=== PATIENT | male | born 1940 | race Caucasian/White ===

== ENCOUNTER 2020-10-14 08:26 | Observation (INO) ==
[2020-10-14] MEDS ORDERED: Ondansetron 4 MG/2 ML VIAL IVP ONE (08:34)
[2020-10-14] MEDS ORDERED: diazePAM 10 MG/2 ML SYRINGE IVP ONE (08:34)
[2020-10-14] MEDS ORDERED: 0.9 % Sodium Chloride 1,000 ML IVC ONE (08:34)
[2020-10-14 09:03] LABS: Basophils % 0.7 %; Eosinophils # 0.4 K/mcL (0.0-0.6); Eosinophils % 6.4 %; Hematocrit 41.4 % (37.5-50.1); Hemoglobin 13.1 g/dL (12.9-16.9); Immature Granulocytes % 0.5 % (0-4); Lymphocytes # 1.3 K/mcL (0.6-4.6); Mean Corpuscular HGB Conc 31.6 g/dL (31.6-35.5); Mean Corpuscular Hemoglobin 30.3 pg (28.0-33.3); Mean Corpuscular Volume 95.6 fL (83.0-100.0); Mean Platelet Volume 9.5 fL (9.4-12.4); Monocytes # 0.6 K/mcL (0.0-1.3); Monocytes % 9.6 %; Neutrophils # 3.8 K/mcL (1.6-8.9); Platelet Count 262 K/mcL (140-400); Red Blood Count 4.33 M/mcL (4.19-5.50); Red Cell Distribution Width 14.5 % (11.5-14.5); Segmented Neutrophils % 61.8 %; White Blood Count 6.1 K/mcL (4.3-11.1)
[2020-10-14 09:07] LABS: INR 1.1; Prothrombin Time 12.7 Seconds (9.4-12.1)
[2020-10-14 09:21] LABS: Alanine Aminotransferase 15 Units/L (7-52); Albumin 3.9 g/dL (3.5-5.7); Albumin/Globulin Ratio 1.3 (1.1-2.2); Alkaline Phosphatase 26 Units/L (34-104); Aspartate Amino Transferase 24 Units/L (13-39); BUN/Creatinine Ratio 19 (6-26); Bilirubin,Total 0.4 mg/dL (0.3-1.0); Blood Urea Nitrogen 35 mg/dL (8-23); Calcium 8.8 mg/dL (8.6-10.3); Carbon Dioxide 21 mEq/L (23-29); Chloride 106 mEq/L (98-107); Globulin 3.1 g/dL (2.4-3.5); Glucose 170 mg/dL (70-105); Magnesium 2.1 mg/dL (1.6-2.6); Osmolality,Calculated 292 (280-300); Potassium 4.1 mEq/L (3.5-5.1); Sodium 135 mEq/L (136-145); Troponin I < 0.03 ng/mL (< 0.04); eGFR For African Americans 42 (> 60); eGFR For Non-African Americans 35 (> 60)
[2020-10-14 09:40] LABS: Adenovirus Not Detected (Not Detect); Coronavirus 229E Not Detected (Not Detect)
[2020-10-14 09:41] LABS: Bordetella Pertussis Not Detected (Not Detect); Chlamydophila pneumoniae Not Detected (Not Detect); Coronavirus HKU1 Not Detected (Not Detect); Coronavirus NL63 Not Detected (Not Detect); Coronavirus OC43 Not Detected (Not Detect); Human Metapneumovirus Not Detected (Not Detect); Human Rhinovirus/Enterovirus Not Detected (Not Detect); Influenza A Subtype 2009 H1 Not Detected (Not Detect); Influenza B Not Detected (Not Detect); Mycoplasma pneumoniae Not Detected (Not Detect); Parainfluenza Virus 1 Not Detected (Not Detect); Parainfluenza Virus 2 Not Detected (Not Detect); Parainfluenza Virus 3 Not Detected (Not Detect); Parainfluenza Virus 4 Not Detected (Not Detect); Respiratory Syncytial Virus Not Detected (Not Detect); SARS-CoV-2 Not Detected (Not Detect)
[2020-10-14] MEDS ORDERED: Naloxone 0.4 MG/ML INJ IVP PRN (10:15)
[2020-10-14] MEDS ORDERED: Ondansetron 4 MG/2 ML VIAL IVP PRN (10:15)
[2020-10-14] MEDS ORDERED: *HR* Dextrose 50 % in Water (Vial) 50 ML VIAL IVP PRN (10:17)
[2020-10-14] MEDS ORDERED: D5% in Water 1,000 ML IVC PRN (10:17)
[2020-10-14] MEDS ORDERED: Dextrose Gel 15 GM/37.5 ML TUBE PO PRN ×2 (10:17)
[2020-10-14] MEDS ORDERED: *HR* LORazepam 2 MG/ML VIAL IVP ONE ×2 (10:44→13:00)
[2020-10-14] MEDS ORDERED: Perflutren Lipid Microsphere 1.3 ML in 0.9 % Sodium Chloride 8.7 ML IVP PRN (15:23)
[2020-10-14] MEDS: Insulin LISPRO 300 UNITS/3 ML VIAL SUBQ SCH (17:52)
[2020-10-14] MEDS ORDERED: Insulin LISPRO 300 UNITS/3 ML VIAL SUBQ SCH (21:00)
[2020-10-15 05:02] LABS: Calcium 8.7 mg/dL (8.6-10.3)
[2020-10-15 07:20] VITALS: BP 166/79
[2020-10-15] MEDS: Insulin LISPRO 300 UNITS/3 ML VIAL SUBQ SCH (07:22)
== END 2020-10-15 11:12 | disposition home or self-care (01) ==
LOC: 3BNU 08:26 → EMEROOARM 08:26 → 3BNU 11:04
PROVIDERS: ADMIT Student in an Organized Health Care Education/Training Program; ATTEND Student in an Organized Health Care Education/Training Program

== ENCOUNTER 2021-10-23 01:28 | Inpatient (IN) ==
[2021-10-23 02:58] LABS: Basophils % 0.5 %; Eosinophils # 0.5 K/mcL (0.0-0.6); Eosinophils % 7.5 %; Hemoglobin 12.1 g/dL (12.9-16.9); Immature Granulocytes % 0.3 % (0-4); Lymphocytes # 1.5 K/mcL (0.6-4.6); Lymphocytes % 22.1 %; Mean Corpuscular HGB Conc 31.8 g/dL (31.6-35.5); Mean Corpuscular Hemoglobin 30.9 pg (28.0-33.3); Mean Corpuscular Volume 96.9 fL (83.0-100.0); Monocytes # 0.9 K/mcL (0.0-1.3); Monocytes % 13.5 %; Neutrophils # 3.7 K/mcL (1.6-8.9); Platelet Count 217 K/mcL (140-400); Red Blood Count 3.92 M/mcL (4.19-5.50); Red Cell Distribution Width 14.3 % (11.5-14.5); Segmented Neutrophils % 56.1 %; White Blood Count 6.6 K/mcL (4.3-11.1)
[2021-10-23 03:07] LABS: Calcium 9.4 mg/dL (8.6-10.3); Potassium 4.2 mEq/L (3.5-5.1)
[2021-10-23 03:08] LABS: Troponin I 0.03 ng/mL (< 0.04)
[2021-10-23] MEDS ORDERED: Nitroglycerin 0.4 MG TAB.SUBL SL PRN (04:03)
[2021-10-23] MEDS ORDERED: 0.9 % Sodium Chloride 500 ML IV ONE (04:43)
[2021-10-23] MEDS ORDERED: *HR* Heparin 5,000 UNIT/ML VIAL IVP ONE (05:16)
[2021-10-23] MEDS ORDERED: *HR* Heparin 5,000 UNIT/ML VIAL IVP PRN (05:16)
[2021-10-23] MEDS ORDERED: Ondansetron 4 MG/2 ML VIAL IVP PRN (05:41)
[2021-10-23] MEDS ORDERED: Melatonin 3 MG TABLET PO PRN (05:41)
[2021-10-23] MEDS ORDERED: Naloxone 0.4 MG/ML INJ IVP PRN (05:41)
[2021-10-23] MEDS ORDERED: Morphine Sulfate 2 MG/ML SYRINGE IVP PRN (06:00)
[2021-10-23] MEDS ORDERED: Acetaminophen 325 MG TABLET PO PRN (06:00)
[2021-10-23] MEDS ORDERED: *HR* Dextrose 50 % in Water (Syg) 50 ML SYRINGE IVP PRN (06:19)
[2021-10-23] MEDS ORDERED: D5% in Water 1,000 ML IVC PRN (06:19)
[2021-10-23] MEDS ORDERED: Dextrose Gel 15 GM/37.5 ML TUBE PO PRN ×2 (06:19)
[2021-10-23 08:37] LABS: Heparin anti-factor XA UFH < 0.04 IU/mL (0.30-0.70); Prothrombin Time 11.5 Seconds (9.4-12.1)
[2021-10-23 08:39] LABS: Chol/HDL Ratio 4.3 (0-4.9); Magnesium 1.6 mg/dL (1.6-2.6)
[2021-10-23] MEDS: Heparin 25,000UNIT/250ML 1/2NS 25,000 UNIT/250 ML IV.SOLN IVC SCH (09:01)
[2021-10-23 09:32] LABS: Hepatitis B Surface Antigen Nonreactive (Nonreactive)
[2021-10-23] MEDS ORDERED: *HR* Metoprolol 5 MG/5 ML VIAL IVP PRN (09:34)
[2021-10-23] MEDS ORDERED: Losartan/HCTZ 50-12.5 TABLET PO SCH (09:45)
[2021-10-23] MEDS ORDERED: Furosemide 40 MG TABLET PO SCH (09:45)
[2021-10-23 09:47] LABS: Hematocrit 38.4 % (37.5-50.1); Hemoglobin 12.3 g/dL (12.9-16.9); Mean Corpuscular Hemoglobin 31.3 pg (28.0-33.3); Mean Corpuscular Volume 97.7 fL (83.0-100.0); Mean Platelet Volume 10.8 fL (9.4-12.4); Platelet Count 204 K/mcL (140-400); Red Blood Count 3.93 M/mcL (4.19-5.50); Red Cell Distribution Width 14.2 % (11.5-14.5); White Blood Count 6.1 K/mcL (4.3-11.1)
[2021-10-23 09:56] LABS: Estimated Average Glucose 169 mg/dl; Hemoglobin A1C 7.5 %
[2021-10-23 10:01] LABS: Hepatitis B Core IgM Nonreactive (Nonreactive); Hepatitis C Virus Antibody Nonreactive (Nonreactive)
[2021-10-23] MEDS ORDERED: Nitroglycerin 1,000 MCG/5 ML VIAL IV ONE (10:48)
[2021-10-23] MEDS ORDERED: 0.9 % Sodium Chloride 2,000 ML ONE (10:48)
[2021-10-23] MEDS ORDERED: ISOVUE-370 200 ML INFUS..BTL ONE (10:48)
[2021-10-23] MEDS ORDERED: Heparin 1,000 UNITS/500 mL 500 ML ONE (10:48)
[2021-10-23] MEDS ORDERED: *HR* Heparin 10,000 UNIT/10 ML VIAL ONE (10:48)
[2021-10-23] MEDS ORDERED: *HR* FentaNYL (PF) 100 MCG/2 ML VIAL ONE (10:58)
[2021-10-23] MEDS ORDERED: *HR* Midazolam HCl 2 MG/2 ML VIAL ONE (10:58)
[2021-10-23] MEDS: 0.9 % Sodium Chloride 500 ML IVC SCH ×2 (14:04→23:44)
[2021-10-23] MEDS: Insulin LISPRO 300 UNITS/3 ML VIAL SUBQ SCH ×2 (14:09→18:13)
[2021-10-23 20:16] LABS: Hepatitis A Antibody IgM Nonreactive (Nonreactive)
[2021-10-23] MEDS: *HR* Heparin 5,000 UNIT/ML VIAL IVP PRN (23:43)
[2021-10-24] MEDS: Insulin LISPRO 300 UNITS/3 ML VIAL SUBQ SCH ×4 (01:07→17:55)
[2021-10-24 06:09] LABS: Hematocrit 38.7 % (37.5-50.1); Hemoglobin 12.8 g/dL (12.9-16.9); Mean Corpuscular HGB Conc 33.1 g/dL (31.6-35.5); Mean Corpuscular Hemoglobin 31.8 pg (28.0-33.3); Mean Corpuscular Volume 96.3 fL (83.0-100.0); Mean Platelet Volume 10.5 fL (9.4-12.4); Platelet Count 209 K/mcL (140-400); Red Blood Count 4.02 M/mcL (4.19-5.50); Red Cell Distribution Width 14.3 % (11.5-14.5)
[2021-10-24 06:31] LABS: Calcium 9.2 mg/dL (8.6-10.3); Potassium 3.8 mEq/L (3.5-5.1)
[2021-10-24] MEDS: Aspirin 81 MG TAB.CHEW PO SCH (08:47)
[2021-10-24] MEDS: 0.9 % Sodium Chloride 500 ML IVC SCH ×2 (08:48→17:56)
[2021-10-24] MEDS: Isosorbide MONOnitrate (24 HR) 30 MG TAB.ER.24H PO SCH (09:05)
[2021-10-24] MEDS: Heparin 25,000UNIT/250ML 1/2NS 25,000 UNIT/250 ML IV.SOLN IVC SCH (11:04)
[2021-10-24] MEDS ORDERED: Ergocalciferol (VIT D2) 50,000 UNIT (1.25MG) CAP PO SCH (12:45)
[2021-10-25] MEDS: Insulin LISPRO 300 UNITS/3 ML VIAL SUBQ SCH ×4 (00:54→17:13)
[2021-10-25 02:11] LABS: Hematocrit 34.4 % (37.5-50.1); Mean Corpuscular HGB Conc 31.7 g/dL (31.6-35.5); Mean Corpuscular Volume 97.7 fL (83.0-100.0); Mean Platelet Volume 10.7 fL (9.4-12.4); Platelet Count 174 K/mcL (140-400); Red Blood Count 3.52 M/mcL (4.19-5.50); Red Cell Distribution Width 14.3 % (11.5-14.5); White Blood Count 7.2 K/mcL (4.3-11.1)
[2021-10-25 02:18] LABS: Hemoglobin 10.9 g/dL (12.9-16.9)
[2021-10-25 02:30] LABS: Calcium 8.8 mg/dL (8.6-10.3); Potassium 3.9 mEq/L (3.5-5.1)
[2021-10-25] MEDS: Aspirin 81 MG TAB.CHEW PO SCH (08:17)
[2021-10-25] MEDS: Fenofibrate 54 MG TABLET PO SCH (08:17)
[2021-10-25] MEDS: Isosorbide MONOnitrate (24 HR) 30 MG TAB.ER.24H PO SCH (08:17)
[2021-10-25] MEDS: 0.9 % Sodium Chloride 500 ML IVC SCH ×2 (08:30→13:08)
[2021-10-25] MEDS: Heparin 25,000UNIT/250ML 1/2NS 25,000 UNIT/250 ML IV.SOLN IVC SCH (08:30)
[2021-10-25] MEDS: *HR* Heparin 5,000 UNIT/ML VIAL IVP PRN (18:59)
[2021-10-26] MEDS: Insulin LISPRO 300 UNITS/3 ML VIAL SUBQ SCH ×4 (00:36→18:04)
[2021-10-26 02:02] LABS: Calcium 8.5 mg/dL (8.6-10.3); Potassium 3.8 mEq/L (3.5-5.1)
[2021-10-26] MEDS: Heparin 25,000UNIT/250ML 1/2NS 25,000 UNIT/250 ML IV.SOLN IVC SCH ×2 (03:57→21:52)
[2021-10-26] MEDS: 0.9 % Sodium Chloride 500 ML IVC SCH ×2 (06:07→12:03)
[2021-10-26] MEDS: Aspirin 81 MG TAB.CHEW PO SCH (07:52)
[2021-10-26] MEDS: Fenofibrate 54 MG TABLET PO SCH (07:52)
[2021-10-26] MEDS: Isosorbide MONOnitrate (24 HR) 30 MG TAB.ER.24H PO SCH (07:53)
[2021-10-26] MEDS: Furosemide 40 MG TABLET PO SCH (10:24)
[2021-10-26] MEDS: hydroCHLOROthiazide 25 MG TABLET PO SCH (10:24)
[2021-10-26] MEDS: Chlorhexidine Rinse 15 ML MOUTHWASH MM SCH (22:00)
[2021-10-26 23:44] LABS: Lambda Qnt Free Light Chains 30.75 mg/L (5.71-26.30)
[2021-10-27] MEDS: Insulin LISPRO 300 UNITS/3 ML VIAL SUBQ SCH ×4 (00:09→16:49)
[2021-10-27] MEDS: 0.9 % Sodium Chloride 500 ML IVC SCH ×3 (02:20→23:06)
[2021-10-27] MEDS: Chlorhexidine Rinse 15 ML MOUTHWASH MM SCH ×2 (05:35→21:08)
[2021-10-27 07:02] LABS: Influenza A PCR Negative (Negative); Influenza B PCR Negative (Negative); Resp. Syncytial Virus PCR Negative (Negative)
[2021-10-27] MEDS ORDERED: Nitroglycerin 0 MG/0 ML INFUS..BTL IVC ONE (07:06)
[2021-10-27] MEDS ORDERED: *HR* Vasopressin 20 UNIT/ML VIAL ONE (07:07)
[2021-10-27] MEDS ORDERED: *HR* FentaNYL (PF) 1,000 MCG/20 ML VIAL ONE (07:08)
[2021-10-27] MEDS ORDERED: *HR* Rocuronium Bromide 50 MG/5 ML VIAL ONE (07:09)
[2021-10-27] MEDS ORDERED: *HR* Propofol 200 MG/20 ML VIAL IVP ONE (07:09)
[2021-10-27] MEDS ORDERED: *HR* Midazolam HCl 5 MG/5 ML VIAL IVP ONE (07:09)
[2021-10-27] MEDS ORDERED: Tranexamic Acid 1,000 MG/10 ML VIAL ONE ×2 (07:10→07:57)
[2021-10-27] MEDS ORDERED: *HR* Magnesium Sulfate 1 GM/2 ML VIAL ONE (07:10)
[2021-10-27] MEDS ORDERED: Famotidine 20 MG/2 ML VIAL ONE (07:10)
[2021-10-27] MEDS ORDERED: Lidocaine 2% Syringe 100 MG/5 ML ONE ×2 (07:10→07:57)
[2021-10-27 07:21] LABS: SARS-CoV-2 by PCR (In House) Positive (Negative)
[2021-10-27] MEDS ORDERED: Norepinephrine 4 MG in 0.9 % Sodium Chloride 250 ML IVC PRN (07:45)
[2021-10-27] MEDS ORDERED: Cardioplegic Solution w/ Potassium 20 MEQ TH ONE (07:45)
[2021-10-27] MEDS ORDERED: Cardioplegic Solution w/ Potassium 5 MEQ TH ONE ×3 (07:45)
[2021-10-27] MEDS ORDERED: Heparin 15,000 UNIT in 0.9 % Sodium Chloride 500 ML IV ONE (07:45)
[2021-10-27 09:46] LABS: Kappa Qnt Free Light Chains 48.48 mg/L (3.30-19.40)
[2021-10-27] MEDS: hydroCHLOROthiazide 25 MG TABLET PO SCH (10:07)
[2021-10-27] MEDS: Furosemide 40 MG TABLET PO SCH (10:07)
[2021-10-27] MEDS: Fenofibrate 54 MG TABLET PO SCH (10:07)
[2021-10-27] MEDS: Isosorbide MONOnitrate (24 HR) 30 MG TAB.ER.24H PO SCH (10:07)
[2021-10-27] MEDS: Aspirin 81 MG TAB.CHEW PO SCH (10:08)
[2021-10-27] MEDS: Heparin 25,000UNIT/250ML 1/2NS 25,000 UNIT/250 ML IV.SOLN IVC SCH (16:47)
[2021-10-28] MEDS: Insulin LISPRO 300 UNITS/3 ML VIAL SUBQ SCH ×4 (00:14→17:22)
[2021-10-28 02:19] LABS: Calcium 8.7 mg/dL (8.6-10.3); Potassium 3.9 mEq/L (3.5-5.1)
[2021-10-28] MEDS: Fenofibrate 54 MG TABLET PO SCH (08:10)
[2021-10-28] MEDS: Aspirin 81 MG TAB.CHEW PO SCH (08:10)
[2021-10-28] MEDS: Furosemide 40 MG TABLET PO SCH (08:10)
[2021-10-28] MEDS: hydroCHLOROthiazide 25 MG TABLET PO SCH (08:10)
[2021-10-28] MEDS: Isosorbide MONOnitrate (24 HR) 30 MG TAB.ER.24H PO SCH (08:10)
[2021-10-28] MEDS: Chlorhexidine Rinse 15 ML MOUTHWASH MM SCH ×2 (08:11→20:42)
[2021-10-28] MEDS: Heparin 25,000UNIT/250ML 1/2NS 25,000 UNIT/250 ML IV.SOLN IVC SCH (09:00)
[2021-10-28] MEDS: 0.9 % Sodium Chloride 500 ML IVC SCH ×3 (12:16→20:44)
[2021-10-29] MEDS: Insulin LISPRO 300 UNITS/3 ML VIAL SUBQ SCH ×4 (02:41→17:25)
[2021-10-29 03:04] LABS: Alpha 2 Globulin (PEP) 1.02 g/dL (0.48-1.05); Beta Globulin (PEP) 0.89 g/dL (0.48-1.10)
[2021-10-29 09:23] LABS: Calcium 9.5 mg/dL (8.6-10.3); Potassium 3.9 mEq/L (3.5-5.1)
[2021-10-29] MEDS: Aspirin 81 MG TAB.CHEW PO SCH (10:57)
[2021-10-29] MEDS: Furosemide 40 MG TABLET PO SCH (10:57)
[2021-10-29] MEDS: Chlorhexidine Rinse 15 ML MOUTHWASH MM SCH ×2 (10:58→20:29)
[2021-10-29] MEDS: Isosorbide MONOnitrate (24 HR) 30 MG TAB.ER.24H PO SCH (10:58)
[2021-10-29] MEDS: hydroCHLOROthiazide 25 MG TABLET PO SCH (10:58)
[2021-10-29] MEDS: Fenofibrate 54 MG TABLET PO SCH (10:58)
[2021-10-29] MEDS: *HR* Heparin 5,000 UNIT/ML VIAL IVP PRN (12:42)
[2021-10-29 13:19] LABS: IFE Reflexed IFE Done
[2021-10-29 13:20] LABS: Immunoglobulin A 315 mg/dL (68-408); Immunoglobulin G 1257 mg/dL (768-1632); Immunoglobulin M 45 mg/dL (35-263)
[2021-10-29] MEDS: Heparin 25,000UNIT/250ML 1/2NS 25,000 UNIT/250 ML IV.SOLN IVC SCH (13:45)
[2021-10-29] MEDS: 0.9 % Sodium Chloride 500 ML IVC SCH ×2 (17:54→18:26)
[2021-10-30] MEDS: Insulin LISPRO 300 UNITS/3 ML VIAL SUBQ SCH ×2 (02:05→04:46)
[2021-10-30 03:26] VITALS: PULSE 72
[2021-10-30] MEDS: 0.9 % Sodium Chloride 500 ML IVC SCH (04:47)
[2021-10-30 07:51] VITALS: BP 164/77; TEMP 97.6; O2SAT 96
[2021-10-30] MEDS: hydroCHLOROthiazide 25 MG TABLET PO SCH (08:31)
[2021-10-30] MEDS: Chlorhexidine Rinse 15 ML MOUTHWASH MM SCH (08:34)
[2021-10-30] MEDS: Fenofibrate 54 MG TABLET PO SCH (08:34)
[2021-10-30] MEDS: Isosorbide MONOnitrate (24 HR) 30 MG TAB.ER.24H PO SCH (08:35)
[2021-10-30] MEDS: Furosemide 40 MG TABLET PO SCH (08:35)
[2021-10-30] MEDS: Aspirin 81 MG TAB.CHEW PO SCH (08:35)
[2021-10-30] MEDS ORDERED: D5% in Water 1,000 ML IVC PRN (09:03)
[2021-10-30] MEDS ORDERED: *HR* Metoprolol 5 MG/5 ML VIAL IVP PRN (09:03)
[2021-10-30] MEDS ORDERED: Acetaminophen 325 MG TABLET PO PRN (09:03)
[2021-10-30] MEDS ORDERED: 0.9 % Sodium Chloride 500 ML IVC SCH (09:03)
[2021-10-30] MEDS ORDERED: Dextrose Gel 15 GM/37.5 ML TUBE PO PRN ×2 (09:03)
[2021-10-30] MEDS ORDERED: Morphine Sulfate 2 MG/ML SYRINGE IVP PRN (09:03)
[2021-10-30] MEDS ORDERED: CeFAZolin Syr 2,000MG/20 ML 2,000 MG/20 ML SYRINGE IVPB ONE (09:03)
[2021-10-30] MEDS ORDERED: Ondansetron 4 MG/2 ML VIAL IVP PRN (09:03)
[2021-10-30] MEDS ORDERED: Nitroglycerin 0.4 MG TAB.SUBL SL PRN (09:03)
[2021-10-30] MEDS ORDERED: Chlorhexidine Rinse 15 ML MOUTHWASH MM SCH (09:03)
[2021-10-30] MEDS ORDERED: Naloxone 0.4 MG/ML INJ IVP PRN (09:03)
[2021-10-30] MEDS ORDERED: *HR* Dextrose 50 % in Water (Syg) 50 ML SYRINGE IVP PRN (09:03)
[2021-10-30] MEDS ORDERED: Melatonin 3 MG TABLET PO PRN (09:03)
[2021-10-30 10:59] LABS: Estimated Average Glucose 174 mg/dl; Hemoglobin A1C 7.7 %
[2021-10-30] MEDS ORDERED: Insulin LISPRO 300 UNITS/3 ML VIAL SUBQ SCH (12:00)
[2021-10-31] MEDS ORDERED: Isosorbide MONOnitrate (24 HR) 30 MG TAB.ER.24H PO SCH (09:00)
[2021-10-31] MEDS ORDERED: Fenofibrate 54 MG TABLET PO SCH (09:00)
[2021-10-31] MEDS ORDERED: Aspirin 81 MG TAB.CHEW PO SCH (09:00)
[2021-11-01] MEDS ORDERED: Ergocalciferol (VIT D2) 50,000 UNIT (1.25MG) CAP PO SCH (09:00)
== END 2021-10-30 12:09 | disposition home or self-care (01) | DRG 280 ==
LOC: EMEROOARM 01:28 → 3BNU 01:28 → SUATTDRO 10-24 13:22 → 3BNU 10-27 09:39
PROVIDERS: ADMIT Student in an Organized Health Care Education/Training Program; ATTEND Hospitalist

== ENCOUNTER 2021-11-29 06:06 | Inpatient (IN) ==
[~2021-11-29 06:06] MED LIST: Cardioplegic Solution w/ Potassium 20 MEQ TH ONE; Cardioplegic Solution w/ Potassium 5 MEQ TH ONE; Heparin 15,000 UNIT in 0.9 % Sodium Chloride 500 ML IV ONE; Norepinephrine 4 MG in 0.9 % Sodium Chloride 250 ML IVC PRN
[2021-11-29] MEDS ORDERED: *HR* Midazolam HCl 5 MG/5 ML VIAL IVP ONE ×2 (06:19→06:21)
[2021-11-29] MEDS ORDERED: *HR* FentaNYL (PF) 1,000 MCG/20 ML VIAL ONE (06:19)
[2021-11-29] MEDS ORDERED: *HR* Rocuronium Bromide 50 MG/5 ML VIAL ONE (06:21)
[2021-11-29] MEDS ORDERED: *HR* Etomidate 20 MG/10 ML AMPUL IVP ONE (06:22)
[2021-11-29] MEDS ORDERED: Tranexamic Acid 1,000 MG/10 ML VIAL ONE ×2 (06:22→11:31)
[2021-11-29] MEDS ORDERED: Famotidine 20 MG/2 ML VIAL ONE (06:22)
[2021-11-29] MEDS ORDERED: Protamine Sulfate 250 MG/25 ML VIAL IVP ONE (06:25)
[2021-11-29] MEDS ORDERED: Calcium Gluconate 1,000 MG/10 ML VIAL ONE (06:25)
[2021-11-29] MEDS ORDERED: Ringers Solution, Lactated 1,000 ML IVC SCH (06:30)
[2021-11-29] MEDS ORDERED: CeFAZolin Syr 2,000MG/20 ML 2,000 MG/20 ML SYRINGE IVPB ONE (06:30)
[2021-11-29] MEDS ORDERED: Chlorhexidine Rinse 15 ML MOUTHWASH MM STA (06:31)
[2021-11-29] MEDS ORDERED: NiCARdipine 2.5 MG/10 ML Syringe IVPB ONE (06:40)
[2021-11-29 08:02] LABS: ABG Base Excess 3 mEq/L (-2 to 3); ABG Chloride 101 mEq/L (98-107); ABG Glucose 137 mg/dL (60-95); ABG HCO3 28 mEq/L (21-27); ABG Ionized Calcium 1.22 mmol/L (1.15-1.35); ABG Oxygen Saturation 100 % (95-98); ABG PCO2 42 mmHg (35-45); ABG PH 7.43 pH Units (7.32-7.45); ABG PO2 338 mmHg (85-104); ABG TCO2 29 mEq/L (20-26)
[2021-11-29 09:18] LABS: ABG Base Excess 2 mEq/L (-2 to 3); ABG Chloride 102 mEq/L (98-107); ABG Glucose 180 mg/dL (60-95); ABG HCO3 27 mEq/L (21-27); ABG Ionized Calcium 1.21 mmol/L (1.15-1.35); ABG Oxygen Saturation 98 % (95-98); ABG PCO2 43 mmHg (35-45); ABG PO2 99 mmHg (85-104); ABG TCO2 28 mEq/L (20-26)
[2021-11-29 10:48] LABS: ABG Base Excess 1 mEq/L (-2 to 3); ABG Chloride 99 mEq/L (98-107); ABG Glucose 175 mg/dL (60-95); ABG HCO3 26 mEq/L (21-27); ABG Ionized Calcium 1.01 mmol/L (1.15-1.35); ABG Oxygen Saturation 100 % (95-98); ABG PCO2 41 mmHg (35-45); ABG PO2 558 mmHg (85-104); ABG TCO2 27 mEq/L (20-26)
[2021-11-29 11:07] LABS: ABG Base Excess 1 mEq/L (-2 to 3); ABG Chloride 98 mEq/L (98-107); ABG Glucose 164 mg/dL (60-95); ABG HCO3 26 mEq/L (21-27); ABG Ionized Calcium 1.18 mmol/L (1.15-1.35); ABG Oxygen Saturation 100 % (95-98); ABG PCO2 43 mmHg (35-45); ABG PH 7.39 pH Units (7.32-7.45); ABG PO2 553 mmHg (85-104); ABG TCO2 27 mEq/L (20-26)
[2021-11-29 11:16] LABS: ABG Base Excess -1 mEq/L (-2 to 3); ABG Chloride 100 mEq/L (98-107); ABG Glucose 171 mg/dL (60-95); ABG HCO3 24 mEq/L (21-27); ABG Ionized Calcium 1.35 mmol/L (1.15-1.35); ABG Oxygen Saturation 98 % (95-98); ABG PCO2 39 mmHg (35-45); ABG PH 7.39 pH Units (7.32-7.45); ABG PO2 114 mmHg (85-104); ABG TCO2 25 mEq/L (20-26)
[2021-11-29] MEDS ORDERED: Acetaminophen 325 MG TABLET PO PRN (11:37)
[2021-11-29] MEDS ORDERED: Insulin Regular, Human 100 UNIT/ML IV PRN (11:37)
[2021-11-29] MEDS ORDERED: Potassium Chloride 40 MEQ/200 ML BAG IVPB PRN (11:37)
[2021-11-29] MEDS ORDERED: Acetaminophen 650 MG RECTAL SUPP RC PRN (11:37)
[2021-11-29] MEDS ORDERED: *HR* Dextrose 50 % in Water (Syg) 50 ML SYRINGE IVP PRN (11:37)
[2021-11-29] MEDS ORDERED: *HR* FentaNYL (PF) 100 MCG/2 ML VIAL IVP PRN (11:37)
[2021-11-29] MEDS ORDERED: Naloxone 0.4 MG/ML INJ IVP PRN (11:37)
[2021-11-29] MEDS ORDERED: Calcium Gluconate 1gm/50mL 1 GM/50 ML BAG IVPB PRN (11:37)
[2021-11-29] MEDS ORDERED: Ondansetron 4 MG/2 ML VIAL IVP PRN (11:37)
[2021-11-29] MEDS ORDERED: Albumin Human 5% 50.0 GM/1,000 ML IV.SOLN ONE (12:06)
[2021-11-29] MEDS: Norepinephrine 4 MG/254 ML IV.SOLN IVC SCH ×2 (12:25→19:22)
[2021-11-29] MEDS: Albumin Human 5% 12.5 GM/250 ML IV.SOLN IVPB PRN ×2 (12:40→17:29)
[2021-11-29] MEDS ORDERED: *HR* Phenylephrine 10 MG/ML VIAL IVC ONE (12:53)
[2021-11-29] MEDS ORDERED: *HR* Heparin 10,000 UNIT/10 ML VIAL IR ONE (12:53)
[2021-11-29] MEDS ORDERED: Mannitol 25% vial 12.5 GM/50 ML VIAL IVPB ONE (12:53)
[2021-11-29] MEDS ORDERED: Tranexamic Acid 1,000 MG/10 ML VIAL IR ONE (12:53)
[2021-11-29] MEDS ORDERED: *HR* Magnesium Sulfate 2 GM/50 ML PIGGYBACK IVPB ONE (12:53)
[2021-11-29] MEDS ORDERED: Albumin Human 25% 25 GM/100 ML IV.SOLN IVPB ONE (12:53)
[2021-11-29] MEDS ORDERED: Lidocaine 2% Syringe 100 MG/5 ML IVP ONE (12:53)
[2021-11-29 12:59] LABS: Basophils # 0.1 K/mcL (0.0-0.2); Basophils % 0.3 %; Eosinophils # 0.3 K/mcL (0.0-0.6); Hematocrit 31.9 % (37.5-50.1); Immature Granulocytes % 0.6 % (0-4); Lymphocytes % 6.2 %; Mean Corpuscular HGB Conc 34.5 g/dL (31.6-35.5); Mean Corpuscular Hemoglobin 32.2 pg (28.0-33.3); Mean Corpuscular Volume 93.3 fL (83.0-100.0); Mean Platelet Volume 10.2 fL (9.4-12.4); Monocytes # 1.4 K/mcL (0.0-1.3); Monocytes % 8.9 %; Platelet Count 227 K/mcL (140-400); Red Blood Count 3.42 M/mcL (4.19-5.50); Red Cell Distribution Width 13.8 % (11.5-14.5)
[2021-11-29 13:04] LABS: ABG Base Excess 1 mEq/L (-2 to 3); ABG HCO3 25 mEq/L (21-27); ABG Oxygen Saturation 100 % (95-98); ABG PCO2 35 mmHg (35-45); ABG PH 7.45 pH Units (7.32-7.45); ABG PO2 172 mmHg (85-104); ABG TCO2 26 mEq/L (20-26); Blood Gas VT 500 cc
[2021-11-29 13:05] LABS: White Blood Count 15.8 K/mcL (4.3-11.1)
[2021-11-29 13:06] LABS: INR 1.4; Prothrombin Time 15.1 Seconds (9.4-12.1)
[2021-11-29 13:09] LABS: Activated Partial Thrombo Time 28.5 Seconds (26.0-36.0)
[2021-11-29 13:17] LABS: Calcium 9.3 mg/dL (8.6-10.3); Magnesium 2.3 mg/dL (1.6-2.6); Potassium 3.9 mEq/L (3.5-5.1)
[2021-11-29] MEDS: Metoclopramide 10 MG/2 ML VIAL IVP SCH ×3 (13:22→23:13)
[2021-11-29] MEDS: Pantoprazole 40 MG VIAL IVP SCH (13:22)
[2021-11-29] MEDS: 0.9 % Sodium Chloride 1,000 ML IVC SCH (14:10)
[2021-11-29] MEDS: CeFAZolin 2 GM/120 ML BAG IVPB SCH ×2 (16:13→23:13)
[2021-11-29 16:27] LABS: ABG Base Excess -1 mEq/L (-2 to 3); ABG HCO3 25 mEq/L (21-27); ABG Oxygen Saturation 98 % (95-98); ABG PCO2 45 mmHg (35-45); ABG PH 7.35 pH Units (7.32-7.45); ABG PO2 107 mmHg (85-104); ABG TCO2 26 mEq/L (20-26)
[2021-11-29] MEDS: *HR* OxyCODONE/APAP 5/325 TABLET PO PRN (17:02)
[2021-11-29 18:20] LABS: ABG Base Excess 1 mEq/L (-2 to 3); ABG HCO3 27 mEq/L (21-27); ABG Oxygen Saturation 98 % (95-98); ABG PCO2 49 mmHg (35-45); ABG PH 7.35 pH Units (7.32-7.45); ABG PO2 109 mmHg (85-104); ABG TCO2 29 mEq/L (20-26); Blood Gas Modality BIVENT
[2021-11-29] MEDS: niCARdipine 20 MG/200 ML MLS IVC SCH ×5 (19:21→23:14)
[2021-11-29] MEDS: Chlorhexidine Rinse 15 ML MOUTHWASH MM SCH (19:49)
[2021-11-29 21:17] LABS: ABG Base Excess 2 mEq/L (-2 to 3); ABG HCO3 28 mEq/L (21-27); ABG Oxygen Saturation 99 % (95-98); ABG PCO2 53 mmHg (35-45); ABG PH 7.33 pH Units (7.32-7.45); ABG PO2 130 mmHg (85-104); ABG TCO2 30 mEq/L (20-26)
[2021-11-30] MEDS: *HR* OxyCODONE/APAP 5/325 TABLET PO PRN ×3 (01:19→16:56)
[2021-11-30] MEDS: niCARdipine 20 MG/200 ML MLS IVC SCH (02:01)
[2021-11-30] MEDS: Norepinephrine 4 MG/254 ML IV.SOLN IVC SCH (02:01)
[2021-11-30 03:23] LABS: Basophils % 0.3 %; Eosinophils % 0.2 %; Hematocrit 28.9 % (37.5-50.1); Hemoglobin 9.6 g/dL (12.9-16.9); Immature Granulocytes % 0.5 % (0-4); Lymphocytes # 0.6 K/mcL (0.6-4.6); Lymphocytes % 6.4 %; Mean Corpuscular HGB Conc 33.2 g/dL (31.6-35.5); Mean Corpuscular Hemoglobin 31.9 pg (28.0-33.3); Mean Platelet Volume 10.5 fL (9.4-12.4); Monocytes # 1.1 K/mcL (0.0-1.3); Monocytes % 10.5 %; Neutrophils # 8.3 K/mcL (1.6-8.9); Platelet Count 169 K/mcL (140-400); Red Blood Count 3.01 M/mcL (4.19-5.50); Red Cell Distribution Width 14.1 % (11.5-14.5); Segmented Neutrophils % 82.1 %; White Blood Count 10.1 K/mcL (4.3-11.1)
[2021-11-30 03:32] LABS: INR 1.2; Prothrombin Time 13.2 Seconds (9.4-12.1)
[2021-11-30 03:34] LABS: Activated Partial Thrombo Time 27.4 Seconds (26.0-36.0)
[2021-11-30 03:38] LABS: Calcium 8.6 mg/dL (8.6-10.3); Magnesium 2.1 mg/dL (1.6-2.6); Potassium 4.3 mEq/L (3.5-5.1)
[2021-11-30] MEDS: Metoclopramide 10 MG/2 ML VIAL IVP SCH ×3 (05:05→16:53)
[2021-11-30] MEDS: Chlorhexidine Rinse 15 ML MOUTHWASH MM SCH ×3 (07:42→20:32)
[2021-11-30] MEDS: Pantoprazole 40 MG VIAL IVP SCH ×2 (07:43→09:37)
[2021-11-30] MEDS: 0.9 % Sodium Chloride 1,000 ML IVC SCH ×2 (08:29→09:36)
[2021-11-30] MEDS ORDERED: Insulin Regular, Human 100 UNIT/ML IV PRN (08:43)
[2021-11-30] MEDS ORDERED: D5% in Water 1,000 ML IVC PRN (08:43)
[2021-11-30] MEDS ORDERED: Acetaminophen 325 MG TABLET PO PRN (08:43)
[2021-11-30] MEDS ORDERED: Dextrose Gel 15 GM/37.5 ML TUBE PO PRN ×2 (08:43)
[2021-11-30] MEDS ORDERED: *HR* FentaNYL (PF) 100 MCG/2 ML VIAL IVP PRN (08:43)
[2021-11-30] MEDS ORDERED: Naloxone 0.4 MG/ML INJ IVP PRN (08:43)
[2021-11-30] MEDS ORDERED: *HR* Dextrose 50 % in Water (Syg) 50 ML SYRINGE IVP PRN (08:43)
[2021-11-30] MEDS ORDERED: Ondansetron 4 MG/2 ML VIAL IVP PRN (08:43)
[2021-11-30] MEDS ORDERED: Furosemide 20 MG/2 ML VIAL IVP SCH (09:00)
[2021-11-30] MEDS ORDERED: Aspirin Enteric Coated 81 MG Tablet PO SCH (09:00)
[2021-11-30] MEDS: Aspirin Enteric Coated 81 MG Tablet PO SCH (09:36)
[2021-11-30] MEDS: Fenofibrate 54 MG TABLET PO SCH (09:37)
[2021-11-30] MEDS: *HR* Heparin 5,000 UNIT/ML VIAL SQ SCH ×2 (09:43→16:53)
[2021-11-30] MEDS: Insulin LISPRO 300 UNITS/3 ML VIAL SUBQ SCH ×3 (11:42→20:31)
[2021-12-01] MEDS: Metoclopramide 10 MG/2 ML VIAL IVP SCH ×4 (00:01→18:08)
[2021-12-01] MEDS: 0.9 % Sodium Chloride 1,000 ML IVC SCH (05:00)
[2021-12-01] MEDS: *HR* Heparin 5,000 UNIT/ML VIAL SQ SCH ×2 (05:01→18:08)
[2021-12-01 05:32] LABS: Basophils % 0.3 %; Eosinophils # 0.1 K/mcL (0.0-0.6); Eosinophils % 1.2 %; Hematocrit 27.4 % (37.5-50.1); Hemoglobin 8.6 g/dL (12.9-16.9); Immature Granulocytes % 0.5 % (0-4); Lymphocytes % 9.5 %; Mean Corpuscular HGB Conc 31.4 g/dL (31.6-35.5); Mean Corpuscular Hemoglobin 30.7 pg (28.0-33.3); Mean Corpuscular Volume 97.9 fL (83.0-100.0); Mean Platelet Volume 10.5 fL (9.4-12.4); Monocytes # 1.3 K/mcL (0.0-1.3); Monocytes % 13.2 %; Neutrophils # 7.7 K/mcL (1.6-8.9); Platelet Count 162 K/mcL (140-400); Red Cell Distribution Width 14.3 % (11.5-14.5); Segmented Neutrophils % 75.3 %; White Blood Count 10.2 K/mcL (4.3-11.1)
[2021-12-01 05:43] LABS: Calcium 7.8 mg/dL (8.6-10.3); Potassium 4.2 mEq/L (3.5-5.1)
[2021-12-01] MEDS: Fenofibrate 54 MG TABLET PO SCH (07:31)
[2021-12-01] MEDS: Chlorhexidine Rinse 15 ML MOUTHWASH MM SCH ×2 (07:31→19:56)
[2021-12-01] MEDS: *HR* OxyCODONE/APAP 5/325 TABLET PO PRN ×2 (07:31→22:57)
[2021-12-01] MEDS: Aspirin Enteric Coated 81 MG Tablet PO SCH (07:31)
[2021-12-01] MEDS: Insulin LISPRO 300 UNITS/3 ML VIAL SUBQ SCH ×4 (07:56→21:03)
[2021-12-01] MEDS: Pantoprazole 40 MG VIAL IVP SCH (08:12)
[2021-12-01 14:11] LABS: Uric Acid 9.3 mg/dL (2.3-7.6)
[2021-12-01 16:01] LABS: Bilirubin,Urine Negative (Negative); Blood,Urine Large (Negative); Clarity,Urine Turbid (Clear); Color,Urine Light-Orange (Yellow); Glucose,Urine (UA) 500 mg/dL (Normal); Ketones,Urine Negative (Negative); Leukocyte Esterase,Urine Moderate (Negative); Mucus,Urine Few per lpf (None-Few); Nitrite,Urine Negative (Negative); PH,Urine 5.5 pH Units (5.0-8.0); Protein,Urine 70 mg/dL (Neg-Trace); RBC,Urine TNTC per hpf (0-3); Urobilinogen,Urine Normal (Normal); WBC,Urine 50-100 per hpf (0-3)
[2021-12-01 16:02] LABS: Sodium, Urine 12.7 mEq/L
[2021-12-01] MEDS: Albumin 25% 25gram/100mL 25 GM/100 ML IV.SOLN IVPB SCH ×2 (16:32→19:56)
[2021-12-01 23:30] LABS: Complement C3 129 mg/dL (87-200)
[2021-12-02] MEDS: Metoclopramide 10 MG/2 ML VIAL IVP SCH ×2 (00:41→06:07)
[2021-12-02] MEDS: *HR* Heparin 5,000 UNIT/ML VIAL SQ SCH ×2 (06:06→18:49)
[2021-12-02] MEDS: Albumin 25% 25gram/100mL 25 GM/100 ML IV.SOLN IVPB SCH ×3 (06:08→22:11)
[2021-12-02] MEDS: Chlorhexidine Rinse 15 ML MOUTHWASH MM SCH ×2 (07:49→20:35)
[2021-12-02] MEDS: Aspirin Enteric Coated 81 MG Tablet PO SCH (07:49)
[2021-12-02] MEDS: Fenofibrate 54 MG TABLET PO SCH (07:49)
[2021-12-02] MEDS: Insulin LISPRO 300 UNITS/3 ML VIAL SUBQ SCH ×4 (08:02→20:38)
[2021-12-02 10:00] LABS: Calcium 8.4 mg/dL (8.6-10.3); Potassium 4.2 mEq/L (3.5-5.1)
[2021-12-02 13:39] LABS: Bilirubin,Urine Negative (Negative); Blood,Urine Moderate (Negative); Clarity,Urine Turbid (Clear); Color,Urine Yellow (Yellow); Glucose,Urine (UA) 200 mg/dL (Normal); Granular Casts,Urine Few per lpf (None Seen); Ketones,Urine Negative (Negative); Leukocyte Esterase,Urine Trace (Negative); Mucus,Urine Few per lpf (None-Few); Nitrite,Urine Negative (Negative); Protein,Urine 70 mg/dL (Neg-Trace); RBC,Urine 30-50 per hpf (0-3); Renal Epithelial Cells,Urine Few per hpf (None-Few); Squamous Epithelial Cell,Urine Few per hpf (None-Few); Transitional Epi Cells,Urine Few per hpf (None-Few); Urobilinogen,Urine Normal (Normal); WBC,Urine 15-30 per hpf (0-3)
[2021-12-02] MEDS ORDERED: Lidocaine -MPF 1% 5 ML AMPUL INFILT ONE (15:10)
[2021-12-02] MEDS: *HR* OxyCODONE/APAP 5/325 TABLET PO PRN ×2 (16:48→20:47)
[2021-12-02] MEDS ORDERED: cefTRIAXone 1,000 MG in 0.9 % Sodium Chloride Mini Bag 100 ML IVP SCH (19:00)
[2021-12-02 19:50] LABS: Basophils % 0.3 %; Eosinophils # 0.4 K/mcL (0.0-0.6); Eosinophils % 4.8 %; Hematocrit 24.7 % (37.5-50.1); Hemoglobin 7.8 g/dL (12.9-16.9); Immature Granulocytes % 0.4 % (0-4); Lymphocytes # 0.6 K/mcL (0.6-4.6); Mean Corpuscular HGB Conc 31.6 g/dL (31.6-35.5); Mean Corpuscular Hemoglobin 31.7 pg (28.0-33.3); Mean Corpuscular Volume 100.4 fL (83.0-100.0); Mean Platelet Volume 10.7 fL (9.4-12.4); Monocytes # 0.9 K/mcL (0.0-1.3); Monocytes % 12.3 %; Neutrophils # 5.6 K/mcL (1.6-8.9); Platelet Count 188 K/mcL (140-400); Red Blood Count 2.46 M/mcL (4.19-5.50); Red Cell Distribution Width 14.6 % (11.5-14.5); Segmented Neutrophils % 74.2 %; White Blood Count 7.5 K/mcL (4.3-11.1)
[2021-12-02] MEDS: cefTRIAXone 1,000 MG in 0.9 % Sodium Chloride Mini Bag 100 ML IVPB SCH (20:33)
[2021-12-02] MEDS: Insulin DETEMIR 100 UNIT/ML X5UNITS SUBQ SCH (20:38)
[2021-12-03] MEDS: Albumin 25% 25gram/100mL 25 GM/100 ML IV.SOLN IVPB SCH ×2 (05:36→14:33)
[2021-12-03] MEDS: *HR* Heparin 5,000 UNIT/ML VIAL SQ SCH ×2 (05:37→16:45)
[2021-12-03 06:23] LABS: Basophils % 0.3 %; Eosinophils # 0.5 K/mcL (0.0-0.6); Eosinophils % 7.4 %; Hematocrit 22.9 % (37.5-50.1); Hemoglobin 7.5 g/dL (12.9-16.9); Immature Granulocytes % 0.8 % (0-4); Lymphocytes # 0.7 K/mcL (0.6-4.6); Lymphocytes % 10.4 %; Mean Corpuscular HGB Conc 32.8 g/dL (31.6-35.5); Mean Corpuscular Hemoglobin 31.9 pg (28.0-33.3); Mean Corpuscular Volume 97.4 fL (83.0-100.0); Mean Platelet Volume 10.5 fL (9.4-12.4); Monocytes # 0.7 K/mcL (0.0-1.3); Neutrophils # 4.5 K/mcL (1.6-8.9); Platelet Count 198 K/mcL (140-400); Red Blood Count 2.35 M/mcL (4.19-5.50); Red Cell Distribution Width 14.5 % (11.5-14.5); Segmented Neutrophils % 70.1 %; White Blood Count 6.4 K/mcL (4.3-11.1)
[2021-12-03 06:39] LABS: Calcium 8.4 mg/dL (8.6-10.3); Potassium 4.4 mEq/L (3.5-5.1)
[2021-12-03] MEDS: *HR* OxyCODONE/APAP 5/325 TABLET PO PRN ×2 (08:16→18:51)
[2021-12-03] MEDS: Fenofibrate 54 MG TABLET PO SCH (08:17)
[2021-12-03] MEDS: Aspirin Enteric Coated 81 MG Tablet PO SCH (08:17)
[2021-12-03] MEDS: Chlorhexidine Rinse 15 ML MOUTHWASH MM SCH ×2 (08:17→19:58)
[2021-12-03] MEDS: Insulin LISPRO 300 UNITS/3 ML VIAL SUBQ SCH ×4 (08:22→20:16)
[2021-12-03] MEDS: Insulin DETEMIR 100 UNIT/ML X5UNITS SUBQ SCH ×2 (08:22→20:16)
[2021-12-03] MEDS: cefTRIAXone 1,000 MG in 0.9 % Sodium Chloride Mini Bag 100 ML IVPB SCH (20:24)
[2021-12-04] MEDS: *HR* OxyCODONE/APAP 5/325 TABLET PO PRN ×3 (04:38→20:23)
[2021-12-04] MEDS: *HR* Heparin 5,000 UNIT/ML VIAL SQ SCH ×2 (05:21→16:39)
[2021-12-04 05:53] LABS: Basophils % 0.3 %; Eosinophils # 0.5 K/mcL (0.0-0.6); Eosinophils % 6.6 %; Hematocrit 22.8 % (37.5-50.1); Hemoglobin 7.4 g/dL (12.9-16.9); Immature Granulocytes % 0.8 % (0-4); Lymphocytes # 0.5 K/mcL (0.6-4.6); Lymphocytes % 7.2 %; Mean Corpuscular HGB Conc 32.5 g/dL (31.6-35.5); Mean Corpuscular Hemoglobin 31.5 pg (28.0-33.3); Mean Platelet Volume 10.2 fL (9.4-12.4); Monocytes # 0.8 K/mcL (0.0-1.3); Monocytes % 11.1 %; Neutrophils # 5.5 K/mcL (1.6-8.9); Platelet Count 262 K/mcL (140-400); Red Blood Count 2.35 M/mcL (4.19-5.50); Red Cell Distribution Width 14.6 % (11.5-14.5); White Blood Count 7.4 K/mcL (4.3-11.1)
[2021-12-04 06:15] LABS: Calcium 8.8 mg/dL (8.6-10.3); Magnesium 2.3 mg/dL (1.6-2.6); Potassium 4.6 mEq/L (3.5-5.1)
[2021-12-04] MEDS: Metoclopramide 10 MG/2 ML VIAL IVP SCH (08:17)
[2021-12-04] MEDS: Aspirin Enteric Coated 81 MG Tablet PO SCH (08:18)
[2021-12-04] MEDS: Fenofibrate 54 MG TABLET PO SCH (08:19)
[2021-12-04] MEDS: Chlorhexidine Rinse 15 ML MOUTHWASH MM SCH ×2 (08:19→20:23)
[2021-12-04] MEDS: Insulin LISPRO 300 UNITS/3 ML VIAL SUBQ SCH ×4 (08:21→20:24)
[2021-12-04] MEDS: Insulin DETEMIR 100 UNIT/ML X5UNITS SUBQ SCH ×2 (08:21→20:23)
[2021-12-04] MEDS ORDERED: Albumin 25% 25gram/100mL 25 GM/100 ML IV.SOLN IVPB ONE (11:45)
[2021-12-04] MEDS ORDERED: Furosemide 40 MG/4 ML VIAL IVP ONE (12:15)
[2021-12-04] MEDS: cefTRIAXone 1,000 MG in 0.9 % Sodium Chloride Mini Bag 100 ML IVPB SCH (20:24)
[2021-12-05 03:46] LABS: Basophils % 0.5 %; Eosinophils # 0.8 K/mcL (0.0-0.6); Eosinophils % 9.1 %; Hematocrit 23.3 % (37.5-50.1); Hemoglobin 7.3 g/dL (12.9-16.9); Immature Granulocytes % 0.9 % (0-4); Lymphocytes # 0.8 K/mcL (0.6-4.6); Lymphocytes % 9.1 %; Mean Corpuscular HGB Conc 31.3 g/dL (31.6-35.5); Mean Corpuscular Hemoglobin 30.4 pg (28.0-33.3); Mean Corpuscular Volume 97.1 fL (83.0-100.0); Mean Platelet Volume 10.1 fL (9.4-12.4); Monocytes % 11.7 %; Neutrophils # 5.8 K/mcL (1.6-8.9); Nucleated Red Blood Cells 0.4 /100 WBC (0); Platelet Count 278 K/mcL (140-400); Red Cell Distribution Width 14.6 % (11.5-14.5); Segmented Neutrophils % 68.7 %; White Blood Count 8.4 K/mcL (4.3-11.1)
[2021-12-05 04:15] LABS: Calcium 8.5 mg/dL (8.6-10.3); Potassium 4.6 mEq/L (3.5-5.1)
[2021-12-05] MEDS: *HR* Heparin 5,000 UNIT/ML VIAL SQ SCH ×2 (05:32→17:32)
[2021-12-05] MEDS: Insulin DETEMIR 100 UNIT/ML X5UNITS SUBQ SCH ×2 (08:04→20:12)
[2021-12-05] MEDS: *HR* OxyCODONE/APAP 5/325 TABLET PO PRN ×2 (08:04→17:36)
[2021-12-05] MEDS: Chlorhexidine Rinse 15 ML MOUTHWASH MM SCH ×2 (08:04→20:12)
[2021-12-05] MEDS: Aspirin Enteric Coated 81 MG Tablet PO SCH (08:04)
[2021-12-05] MEDS: Fenofibrate 54 MG TABLET PO SCH (08:04)
[2021-12-05] MEDS: Insulin LISPRO 300 UNITS/3 ML VIAL SUBQ SCH ×4 (08:05→20:13)
[2021-12-05] MEDS ORDERED: Furosemide 20 MG/2 ML VIAL IVP ONE (14:25)
[2021-12-05] MEDS ORDERED: Albumin 25% 25gram/100mL 25 GM/100 ML IV.SOLN IVPB ONE (14:27)
[2021-12-05] MEDS: Amoxicillin/Clavulanate 500 MG TABLET PO SCH (17:32)
[2021-12-06] MEDS: *HR* Heparin 5,000 UNIT/ML VIAL SQ SCH ×2 (05:21→16:29)
[2021-12-06 07:45] LABS: Basophils # 0.1 K/mcL (0.0-0.2); Basophils % 0.6 %; Eosinophils # 0.8 K/mcL (0.0-0.6); Eosinophils % 8.1 %; Hematocrit 27.1 % (37.5-50.1); Hemoglobin 8.5 g/dL (12.9-16.9); Immature Granulocytes % 1.7 % (0-4); Lymphocytes # 0.8 K/mcL (0.6-4.6); Mean Corpuscular HGB Conc 31.4 g/dL (31.6-35.5); Mean Corpuscular Hemoglobin 30.5 pg (28.0-33.3); Mean Corpuscular Volume 97.1 fL (83.0-100.0); Mean Platelet Volume 10.3 fL (9.4-12.4); Monocytes # 1.1 K/mcL (0.0-1.3); Monocytes % 10.7 %; Neutrophils # 7.2 K/mcL (1.6-8.9); Nucleated Red Blood Cells 0.7 /100 WBC (0); Platelet Count 446 K/mcL (140-400); Red Blood Count 2.79 M/mcL (4.19-5.50); Red Cell Distribution Width 14.7 % (11.5-14.5); Segmented Neutrophils % 70.9 %; White Blood Count 10.1 K/mcL (4.3-11.1)
[2021-12-06 08:01] LABS: Calcium 9.4 mg/dL (8.6-10.3); Potassium 4.5 mEq/L (3.5-5.1)
[2021-12-06] MEDS: Amoxicillin/Clavulanate 500 MG TABLET PO SCH ×2 (08:50→16:28)
[2021-12-06] MEDS: Aspirin Enteric Coated 81 MG Tablet PO SCH (08:50)
[2021-12-06] MEDS: Insulin LISPRO 300 UNITS/3 ML VIAL SUBQ SCH ×4 (08:50→20:07)
[2021-12-06] MEDS: Fenofibrate 54 MG TABLET PO SCH (08:51)
[2021-12-06] MEDS: Chlorhexidine Rinse 15 ML MOUTHWASH MM SCH ×2 (08:51→20:07)
[2021-12-06] MEDS: Insulin DETEMIR 100 UNIT/ML X5UNITS SUBQ SCH ×2 (08:52→20:07)
[2021-12-06] MEDS: *HR* OxyCODONE/APAP 5/325 TABLET PO PRN (16:28)
[2021-12-07 01:35] LABS: ANCA IFA Titer <1:20 (<1:20)
[2021-12-07] MEDS: *HR* Heparin 5,000 UNIT/ML VIAL SQ SCH (05:35)
[2021-12-07 06:29] LABS: Basophils # 0.1 K/mcL (0.0-0.2); Basophils % 0.5 %; Eosinophils # 0.7 K/mcL (0.0-0.6); Eosinophils % 7.2 %; Hematocrit 26.7 % (37.5-50.1); Hemoglobin 8.2 g/dL (12.9-16.9); Immature Granulocytes % 1.7 % (0-4); Lymphocytes # 0.8 K/mcL (0.6-4.6); Lymphocytes % 7.7 %; Mean Corpuscular HGB Conc 30.7 g/dL (31.6-35.5); Mean Corpuscular Hemoglobin 30.4 pg (28.0-33.3); Mean Corpuscular Volume 98.9 fL (83.0-100.0); Mean Platelet Volume 10.8 fL (9.4-12.4); Monocytes # 1.1 K/mcL (0.0-1.3); Monocytes % 10.8 %; Neutrophils # 7.2 K/mcL (1.6-8.9); Nucleated Red Blood Cells 0.3 /100 WBC (0); Platelet Count 370 K/mcL (140-400); Segmented Neutrophils % 72.1 %
[2021-12-07 07:17] LABS: Calcium 8.9 mg/dL (8.6-10.3); Potassium 5.1 mEq/L (3.5-5.1)
[2021-12-07] MEDS: Insulin LISPRO 300 UNITS/3 ML VIAL SUBQ SCH (09:29)
[2021-12-07] MEDS: Chlorhexidine Rinse 15 ML MOUTHWASH MM SCH (09:30)
[2021-12-07] MEDS: Aspirin Enteric Coated 81 MG Tablet PO SCH (09:30)
[2021-12-07] MEDS: Fenofibrate 54 MG TABLET PO SCH (09:30)
[2021-12-07] MEDS: Amoxicillin/Clavulanate 500 MG TABLET PO SCH (09:30)
[2021-12-07] MEDS: Insulin DETEMIR 100 UNIT/ML X5UNITS SUBQ SCH (09:34)
[2021-12-07 10:11] LABS: Influenza A PCR Negative (Negative); Influenza B PCR Negative (Negative); Resp. Syncytial Virus PCR Negative (Negative)
[2021-12-07 10:20] LABS: SARS-CoV-2 by PCR (In House) Positive (Negative)
[2021-12-07 11:24] LABS: ANCA IFA Pattern NONE DETECTED (None Detected); Serine Protease-3 Antibody 1 AU/mL (0-19)
[2021-12-07 13:21] VITALS: BP 152/52; PULSE 85; TEMP 98.1
[2021-12-07 16:05] VITALS: O2SAT 93
== END 2021-12-07 17:26 | disposition other institution (70) | DRG 236 ==
LOC: SAMDAY 06:06 → ICNU 12:04 → 2NNU 11-30 23:28
PROVIDERS: ADMIT Thoracic Surgery (Cardiothoracic Vascular Surgery); ATTEND Thoracic Surgery (Cardiothoracic Vascular Surgery)

== ENCOUNTER 2022-04-28 23:42 | Inpatient (IN) ==
[2022-04-29 00:20] LABS: Basophils % 0.4 %; Eosinophils # 0.2 K/mcL (0.0-0.6); Eosinophils % 2.2 %; Hematocrit 34.5 % (37.5-50.1); Immature Granulocytes % 0.4 % (0-4); Lymphocytes # 1.1 K/mcL (0.6-4.6); Lymphocytes % 14.4 %; Mean Corpuscular HGB Conc 31.9 g/dL (31.6-35.5); Mean Corpuscular Volume 84.8 fL (83.0-100.0); Mean Platelet Volume 10.6 fL (9.4-12.4); Monocytes # 0.9 K/mcL (0.0-1.3); Monocytes % 11.4 %; Neutrophils # 5.6 K/mcL (1.6-8.9); Platelet Count 264 K/mcL (140-400); Red Blood Count 4.07 M/mcL (4.19-5.50); Red Cell Distribution Width 17.4 % (11.5-14.5); Segmented Neutrophils % 71.2 %; White Blood Count 7.8 K/mcL (4.3-11.1)
[2022-04-29 00:42] LABS: Albumin 3.5 g/dL (3.5-5.7); Albumin/Globulin Ratio 1.1 (1.1-2.2); Bilirubin,Direct 0.1 mg/dL (0.0-0.2); Bilirubin,Indirect 0.2 mg/dL (0.0-1.0); Bilirubin,Total 0.3 mg/dL (0.3-1.0); Calcium 8.8 mg/dL (8.6-10.3); Globulin 3.3 g/dL (2.4-3.5); Potassium 4.4 mEq/L (3.5-5.1); Total Protein 6.8 g/dL (6.4-8.9)
[2022-04-29 00:55] LABS: Troponin I 1.79 ng/mL (< 0.04)
[2022-04-29] MEDS ORDERED: *HR* Heparin 5,000 UNIT/ML VIAL IVP ONE (02:12)
[2022-04-29] MEDS ORDERED: Aspirin 325 MG TABLET PO ONE (02:12)
[2022-04-29] MEDS ORDERED: *HR* Heparin 5,000 UNIT/ML VIAL IVP PRN ×2 (02:12)
[2022-04-29] MEDS ORDERED: Heparin 25,000UNIT/250ML 1/2NS 25,000 UNIT/250 ML IV.SOLN IVC SCH (02:15)
[2022-04-29 02:48] LABS: Bilirubin,Urine Negative (Negative); Blood,Urine Negative (Negative); Clarity,Urine Clear (Clear); Color,Urine Colorless (Yellow); Glucose,Urine (UA) Normal (Normal); Ketones,Urine Negative (Negative); Leukocyte Esterase,Urine Negative (Negative); Nitrite,Urine Negative (Negative); PH,Urine 6.5 pH Units (5.0-8.0); Protein,Urine Negative (Neg-Trace); Specific Gravity,Urine 1.011 (1.010-1.025); Urobilinogen,Urine Normal (Normal)
[2022-04-29] MEDS ORDERED: *HR* Ticagrelor 90 MG TABLET ONE (02:52)
[2022-04-29] MEDS ORDERED: *HR* Ticagrelor 90 MG TABLET PO ONE (02:53)
[2022-04-29 03:00] LABS: Heparin anti-factor XA UFH < 0.04 IU/mL (0.30-0.70); INR 1.1; Prothrombin Time 12.6 Seconds (9.4-12.1)
[2022-04-29 03:02] LABS: Activated Partial Thrombo Time 33.9 Seconds (26.0-36.0)
[2022-04-29] MEDS ORDERED: 0.9 % Sodium Chloride 1,000 ML ONE (03:16)
[2022-04-29] MEDS ORDERED: Heparin 1,000 UNITS/500 mL 500 ML ONE ×2 (03:16→04:35)
[2022-04-29] MEDS ORDERED: Nitroglycerin 1,000 MCG/5 ML VIAL IV ONE ×2 (03:17→04:21)
[2022-04-29] MEDS ORDERED: Iopamidol - 370 200 ML INFUS..BTL ONE ×2 (03:17→04:30)
[2022-04-29] MEDS ORDERED: *HR* Heparin 10,000 UNIT/10 ML VIAL ONE ×2 (03:17→04:28)
[2022-04-29] MEDS ORDERED: *HR* FentaNYL (PF) 100 MCG/2 ML VIAL ONE (03:45)
[2022-04-29] MEDS ORDERED: *HR* Midazolam HCl 2 MG/2 ML VIAL ONE (03:45)
[2022-04-29] MEDS ORDERED: Perflutren Lipid Microsphere 1.3 ML in 0.9 % Sodium Chloride 8.7 ML IVP PRN (05:17)
[2022-04-29] MEDS ORDERED: Naloxone 0.4 MG/ML INJ IVP PRN (05:17)
[2022-04-29] MEDS: 0.9 % Sodium Chloride 1,000 ML IVC SCH ×2 (06:40→10:55)
[2022-04-29] MEDS ORDERED: Dextrose Gel 15 GM/37.5 ML TUBE PO PRN ×2 (06:47)
[2022-04-29] MEDS ORDERED: D5% in Water 1,000 ML IVC PRN (06:47)
[2022-04-29] MEDS ORDERED: *HR* Dextrose 50 % in Water (Syg) 50 ML SYRINGE IVP PRN (06:47)
[2022-04-29] MEDS: Aspirin 81 MG TAB.CHEW PO SCH (11:44)
[2022-04-29] MEDS: *HR* Ticagrelor 90 MG TABLET PO SCH ×2 (11:44→22:03)
[2022-04-29] MEDS ORDERED: Nitroglycerin 0.4 MG TAB.SUBL SL PRN (12:31)
[2022-04-29] MEDS: Insulin LISPRO 300 UNITS/3 ML VIAL SUBQ SCH ×3 (13:53→22:04)
[2022-04-29] MEDS: *HR* Heparin 5,000 UNIT/ML VIAL SQ SCH (17:04)
[2022-04-29] MEDS: traZODone 50 MG TABLET PO PRN (22:04)
[2022-04-30 05:41] LABS: Calcium 8.9 mg/dL (8.6-10.3); Chol/HDL Ratio 4.8 (0-4.9); Potassium 4.5 mEq/L (3.5-5.1)
[2022-04-30 05:43] LABS: Basophils % 0.5 %; Eosinophils # 0.2 K/mcL (0.0-0.6); Eosinophils % 2.5 %; Hematocrit 34.1 % (37.5-50.1); Hemoglobin 10.8 g/dL (12.9-16.9); Immature Granulocytes % 0.4 % (0-4); Lymphocytes % 11.8 %; Mean Corpuscular HGB Conc 31.7 g/dL (31.6-35.5); Mean Corpuscular Hemoglobin 26.9 pg (28.0-33.3); Mean Platelet Volume 10.4 fL (9.4-12.4); Monocytes # 1.1 K/mcL (0.0-1.3); Monocytes % 13.5 %; Platelet Count 236 K/mcL (140-400); Red Blood Count 4.01 M/mcL (4.19-5.50); Red Cell Distribution Width 17.9 % (11.5-14.5); Segmented Neutrophils % 71.3 %; White Blood Count 8.4 K/mcL (4.3-11.1)
[2022-04-30] MEDS: *HR* Heparin 5,000 UNIT/ML VIAL SQ SCH ×2 (05:45→17:05)
[2022-04-30 05:46] LABS: Estimated Average Glucose 223 mg/dl; Hemoglobin A1C 9.4 %
[2022-04-30] MEDS: Aspirin 81 MG TAB.CHEW PO SCH (07:21)
[2022-04-30] MEDS: *HR* Ticagrelor 90 MG TABLET PO SCH ×2 (07:21→22:36)
[2022-04-30] MEDS ORDERED: Perflutren Lipid Microsphere 1.3 ML in 0.9 % Sodium Chloride 8.7 ML IVP PRN (08:50)
[2022-04-30] MEDS: Insulin LISPRO 300 UNITS/3 ML VIAL SUBQ SCH ×4 (08:50→22:19)
[2022-04-30 10:43] LABS: Troponin I 18.71 ng/mL (< 0.04)
[2022-04-30] MEDS: traZODone 50 MG TABLET PO PRN (22:18)
[2022-05-01] MEDS: *HR* Heparin 5,000 UNIT/ML VIAL SQ SCH ×2 (06:03→18:12)
[2022-05-01] MEDS: Aspirin 81 MG TAB.CHEW PO SCH (08:52)
[2022-05-01] MEDS: *HR* Ticagrelor 90 MG TABLET PO SCH ×2 (08:52→21:00)
[2022-05-01] MEDS: Insulin LISPRO 300 UNITS/3 ML VIAL SUBQ SCH ×3 (08:53→16:17)
[2022-05-01] MEDS ORDERED: D5% in Water 1,000 ML IVC PRN (12:19)
[2022-05-01] MEDS ORDERED: Naloxone 0.4 MG/ML INJ IVP PRN (12:19)
[2022-05-01] MEDS ORDERED: traZODone 50 MG TABLET PO PRN (12:19)
[2022-05-01] MEDS ORDERED: Dextrose Gel 15 GM/37.5 ML TUBE PO PRN ×2 (12:19)
[2022-05-01] MEDS ORDERED: Nitroglycerin 0.4 MG TAB.SUBL SL PRN (12:19)
[2022-05-01] MEDS ORDERED: *HR* Dextrose 50 % in Water (Syg) 50 ML SYRINGE IVP PRN (12:19)
[2022-05-01] MEDS ORDERED: Perflutren Lipid Microsphere 1.3 ML in 0.9 % Sodium Chloride 8.7 ML IVP PRN (12:19)
[2022-05-01] MEDS ORDERED: Insulin LISPRO 300 UNITS/3 ML VIAL SUBQ SCH (21:00)
[2022-05-02 05:05] LABS: Hematocrit 32.2 % (37.5-50.1); Hemoglobin 10.2 g/dL (12.9-16.9); Mean Corpuscular HGB Conc 31.7 g/dL (31.6-35.5); Mean Corpuscular Hemoglobin 27.4 pg (28.0-33.3); Mean Corpuscular Volume 86.6 fL (83.0-100.0); Mean Platelet Volume 10.6 fL (9.4-12.4); Platelet Count 224 K/mcL (140-400); Red Blood Count 3.72 M/mcL (4.19-5.50); Red Cell Distribution Width 17.5 % (11.5-14.5); White Blood Count 8.5 K/mcL (4.3-11.1)
[2022-05-02 05:19] LABS: Calcium 8.7 mg/dL (8.6-10.3); Potassium 4.4 mEq/L (3.5-5.1)
[2022-05-02 05:27] LABS: Troponin I 7.05 ng/mL (< 0.04)
[2022-05-02] MEDS: *HR* Heparin 5,000 UNIT/ML VIAL SQ SCH ×2 (06:10→06:13)
[2022-05-02 08:16] VITALS: TEMP 97.9
[2022-05-02] MEDS: *HR* Ticagrelor 90 MG TABLET PO SCH (08:21)
[2022-05-02] MEDS: Insulin LISPRO 300 UNITS/3 ML VIAL SUBQ SCH (08:22)
[2022-05-02] MEDS ORDERED: Nitroglycerin 0.4 MG TAB.SUBL SL PRN (08:32)
[2022-05-02] MEDS ORDERED: GlipiZIDE 5 MG TABLET PO SCH (08:45)
[2022-05-02] MEDS ORDERED: Furosemide 40 MG TABLET PO SCH (09:00)
[2022-05-02] MEDS ORDERED: Losartan/HCTZ 50-12.5 TABLET PO SCH (09:00)
[2022-05-02] MEDS ORDERED: Fenofibrate 54 MG TABLET PO SCH (09:00)
[2022-05-02] MEDS ORDERED: Aspirin 81 MG TAB.CHEW PO SCH (09:00)
[2022-05-02] MEDS ORDERED: Melatonin 3 MG TABLET PO SCH ×2 (09:00→21:00)
[2022-05-02 11:23] VITALS: PULSE 68
[2022-05-02 11:24] VITALS: BP 125/55; O2SAT 100
[2022-05-03] MEDS ORDERED: Ergocalciferol (VIT D2) 50,000 UNIT (1.25MG) CAP PO SCH ×2 (09:00→12:30)
[2022-05-06] MEDS ORDERED: Dulaglutide [Trulicity] 0.75 MG/0.5 ML Pen.Injctr SUBQ SCH (08:43)
== END 2022-05-02 11:49 | disposition home or self-care (01) | DRG 246 ==
LOC: ICNU 23:42 → EMEROOARM 23:42 → ICNU 04-29 03:36
PROVIDERS: ADMIT Internal Medicine; ATTEND Internal Medicine